=== PATIENT | female | born 1965 | race Caucasian/White ===

== ENCOUNTER 2022-08-14 19:08 | Emergency (ER) | payer OTHER ==
[2022-08-14] MEDS ORDERED: Boostrix 0.5 ML (Tdap) VIAL (>/=7 yrs of age) ONE (19:42)
[2022-08-14] MEDS ORDERED: Lidocaine 1% PF 5 ML VIAL ONE (20:09)
[2022-08-14] MEDS ORDERED: Bacitracin 1 PK ONE (21:46)
== END 2022-08-14 22:09 | disposition home or self-care (01) ==
LOC: ERS 19:08
DX: S01.81XA Laceration without foreign body of other part of head, initial encounter (principal); S16.1XXA Strain of muscle, fascia and tendon at neck level, initial encounter; E11.9 Type 2 diabetes mellitus without complications; F17.210 Nicotine dependence, cigarettes, uncomplicated; V89.2XXA Person injured in unspecified motor-vehicle accident, traffic, initial encounter; Z23 Encounter for immunization
CPT/HCPCS: 13132; 70450; 72125; 90471; 90715